=== PATIENT | male | born 1945 | race Caucasian/White ===

== ENCOUNTER → 2016-07-18 | Outpatient (CLI) | payer BC ==
[~2016-07-18] MED LIST: ALLEGRA; ALLEGRA ALLERG180 MG PO; AMLODIPINE BESYL5 MG PO; ASPIRIN81 M2 PO; ASPIRIN81 MG PO; BRILINTA90 MG PO; DIOVAN; FISH OIL 1,0001 CAP PO; FISH OIL 1,2001 CAP PO; HYZAAR 100-25 T1 TAB PO; LIPITOR20 MG PO; LIPITOR40 MG; LOSARTAN-HCTZ1 EAC3 PO; NITROSTAT0.4 MG SL; PANTOPRAZOLE SO40 MG PO; PROTONIX; WELCHOL625 MG PO
[2016-07-18 10:42] LABS: MEAN CELL VOLUME 94.1 FL (83-96); MEAN CORPUSCULAR HEMOGLOBIN 31.3 PG (28-34); MEAN CORPUSCULAR HGB CONC 33.3 g/dL (30-36); MEAN PLATELET VOLUME 8.5 FL (6.5-11.5); RED BLOOD COUNT 5.74 X10e (3.90-5.60); RED CELL DISTRIBUTION WIDTH 14.2 % (11.0-15.5); WHITE BLOOD COUNT 7.3 X10e3 (4.0-10.5)
[2016-07-18 11:46] LABS: CALCIUM SERUM 9.4 mg/dL (8.4-10.2); POTASSIUM 3.9 mmol/L (3.5-5.1)
[2016-07-18 11:48] LABS: ALBUMIN SERUM 3.9 g/dL (3.5-5.0); BILIRUBIN,TOTAL 1.1 mg/dL (0.2-2.0); BUN/CREATININE RATIO 15.33; CREATININE SERUM 1.5 mg/dL (0.6-1.4); GLOM FILT RATE Estimated 46.8 mL/min (>60); PROTEIN TOTAL SERUM 6.9 g/dL (6.0-8.3)
== END | disposition home or self-care (01) ==
LOC: CLAB 09:48
PROVIDERS: Internal Medicine
DX: I10 Essential (primary) hypertension (principal); E78.5 Hyperlipidemia, unspecified; E11.9 Type 2 diabetes mellitus without complications
CPT/HCPCS: 36415; 80053; 80061; 83036; 85027

== ENCOUNTER → 2016-07-18 | Outpatient (CLI) | payer BC ==
[2016-07-18 11:45] LABS: ALBUMIN SERUM 3.9 g/dL (3.5-5.0); BILIRUBIN,TOTAL 1.1 mg/dL (0.2-2.0); BUN/CREATININE RATIO 15.33; CALCIUM SERUM 9.4 mg/dL (8.4-10.2); CREATININE SERUM 1.5 mg/dL (0.6-1.4); GLOM FILT RATE Estimated 46.8 mL/min (>60); PHOSPHOROUS 2.3 mg/dL (2.5-4.6); POTASSIUM 3.9 mmol/L (3.5-5.1); PROTEIN TOTAL SERUM 6.9 g/dL (6.0-8.3)
[2016-07-21 10:29] LABS: CALCIUM (PTHINTACT) 9.6 mg/dL (8.6-10.3)
== END | disposition home or self-care (01) ==
LOC: CLAB 09:52
PROVIDERS: Internal Medicine Nephrology
DX: N18.3 Chronic kidney disease, stage 3 (moderate) (principal)
CPT/HCPCS: 80053; 82310; 83970; 84100; 84550

== ENCOUNTER → 2016-09-04 | Outpatient (CLI) | payer BC ==
--- NOTE | ~2016-09-04 | CR63 ---
[facility] A Service of [facility] & [facility] RADIOLOGY TEXT RESULTS PATIENT: ELIO SHIN LOCATION: [facility] : 47 UNIT #: [id number] AGE: [address]: MALATHI LLAMAS APRN SEX: M ORDER DR: [id number] [facility] [address] [place], [place] [address] [id number] O MR#: [id number] Acc #: [id number] NAME: ELIO SHIN : 1945 SEX: M STUDY DATE/TIME: 09/04/2016 18:03 UNIT: [facility] ROOM: STUDY DESCRIPTION: CR Chest 2 View Attending Physician: Malathi Llamas Referring Physician: Malathi Llamas Ordering Physician: Physician Non-Staff Primary Care Physician: Kade Rodriguez M.D. MEDICAL IMAGING REPORT This report is preliminary unless electronic signature is present EXAM Two-view chest. INDICATIONS Shortness of air. Cough and congestion. Bronchitis. 4-day duration. FINDINGS PA and lateral views of the chest compared to 07/12/2014. Heart and mediastinal contours normal. The lungs are hyperinflated suggesting component of obstructive lung disease. No pleural effusion. IMPRESSION No acute cardiopulmonary findings. Hyperinflated lungs suggesting component of obstructive lung disease. Dictated by... Javier Sampson M.D. THIS IS AN ELECTRONICALLY VERIFIED REPORT Javier Sampson M.D. at 09/05/2016 3:09 PM Tru/peter TD: 09/05/2016 11:05 JOB #: [id number] MEDICAL IMAGING REPORT Page 1 of 1 COPY
== END | disposition home or self-care (01) ==
LOC: CRAD 17:49
DX: J40 Bronchitis, not specified as acute or chronic (principal); R91.8 Other nonspecific abnormal finding of lung field
CPT/HCPCS: 71020